=== PATIENT | male | born 1980 | race African-American/Black ===

== ENCOUNTER 2017-06-14 20:36 | Emergency (ER) | payer SELFPAY ==
[~2017-06-14] VITALS: Ht 193 cm; Wt 80.0 kg
[~2017-06-14 20:36] MED LIST: CIPROFLOXACIN OS
[2017-06-14] MEDS ORDERED: MOXIFLOXACIN HCL 0.5% 3 ML OPHTHALMIC SOLUTION OS ONE (21:30)
[2017-06-14] MEDS ORDERED: FLUORESCEIN SODIUM 1 MG STRIP OS ONE (21:30)
[2017-06-14] MEDS ORDERED: TETRACAINE HCL VISCOUS 0.5% 0.6 ML OPHTHALMIC SOLUTION OS ONE (21:30)
[2017-06-14] MEDS ORDERED: ERYTHROMYCIN 0.5% 3.5 GM TUBE OPHTHALMIC OINTMENT OS ONE (21:45)
[2017-06-14 22:11] VITALS: BP 124/72
== END 2017-06-14 22:15 | disposition home or self-care (01) ==
LOC: EMS 20:37
DX: H10.9 Unspecified conjunctivitis (principal)
CPT/HCPCS: 99284

== ENCOUNTER 2021-02-16 02:24 | Emergency (ER) | payer MEDICAID ==
[~2021-02-16] VITALS: Ht 193 cm; Wt 81.8 kg
[2021-02-16 02:50] VITALS: BP 137/84
[2021-02-16] MEDS ORDERED: PERMETHRIN 5% 60 GM CREAM TP ONE (03:15)
== END 2021-02-16 03:23 | disposition home or self-care (01) ==
LOC: EMS 02:28
DX: B86 Scabies (principal)
CPT/HCPCS: 99282; Z7502; Z7610